=== PATIENT | female | born 1980 | race African-American/Black ===

== ENCOUNTER 2021-08-02 14:28 | Emergency (ER) | payer MEDICAID, SELFPAY ==
[2021-08-02 14:41] VITALS: BP 150/85; PULSE 99; RESP 16; TEMP 36.4; O2SAT 100
--- NOTE | 2021-08-02 14:58 | ED.GENADUL_ITS ---
Discharge Plan Disposition Patient Disposition: HOME Condition: Stable Discharge Details Clinical Impression: Otitis media Primary Care Provider: Unknown,Unknown ED Provider: Royer Bernard Home Meds and New Rx's Prescriptions: New amoxicillin 875 mg tablet 875 mg PO BID Qty: 20 0RF Discharge Instructions Instructions: Ear Infection (ED) Additional Instructions: Amoxicillin as directed. [id number] Tylenol and/or Motrin as well as antihistamine and decongestant as directed. Please watch for new or worsening symptoms and return to the ER for any concerns. Medical Decision Making 40-year-old female, denies significant past medical history, current smoker, presents with right ear pain for the past 2-3 days. Tried czsi-lds-jbrzsfa drops without relief. She reports decreased hearing and worse pain with chewing. Examination consistent with otitis media, no evidence of TMJ. Will treat with antibiotics and okro-zlg-vvkqoay medication for symptomatic control. Patient comfortable with this plan and has no additional questions or concerns Standard discharge and return precautions were provided. This documentation was generated using [employer] system, please disregard any oddities of phrase or misspellings. HPI General Mode of arrival: ambulatory . Date/Time Provider Initiated Documentation: 08/02/21 14:45 . Limitations to Documentation: no limitations . Information obtained by: patient . History of Present Illness 40 year old F presents to the emergency department with the chief complaint of R ear pain, described as moderate, with intensity rated at 6. Quality is described as aching, and is localized to the head (R ear). Patient reports no radiation. Patient started experiencing this day(s) (2-3) and it has been constant. improves with No relieving factors improve symptom(s), No exacerbating factors reported . Patient notes no other symptoms.. Patient did receive the following treatments prior to arrival, other (OTC drops) Related Data Home Medications Medication Instructions Recorded Confirmed amoxicillin 875 mg tablet 875 mg PO BID #20 tab 08/02/21 Previous Rx's Medication Instructions Recorded amoxicillin 875 mg tablet 875 mg PO BID #20 tab 08/02/21 Allergies Allergy/AdvReac Type Severity Reaction Status Date / Time No Known Allergies Allergy Unverified 08/02/21 14:47 General Stated Complaint: EarProblem SNEHA: 4 Review of Systems Constitutional Constitutional: Denies fever(s) ENT Ears, Nose, Mouth, and Throat: Denies ear discharge and Denies sore throat Cardiovascular Cardiovascular: Denies chest pain and Denies dyspnea Respiratory Respiratory: Denies cough and Denies dyspnea PFSH All Active Problems (Updated 08/02/21 @ 15:03 by RONNY Multani) Otitis media (Acute) Social History Smoking/Tobacco Use Status: Current every day Tobacco Type: cigarettes Smoking risk assessment performed?: Yes Alcohol Intake: current Alcohol Intake frequency: a few times a month Drug use: Socially Substance use type: marijuana Do you feel safe at home: Yes Do you feel safe in your relationship?: Yes Exam Const General: cooperative, healthy appearing, comfortable and no acute distress Orientation: alert and awake HENGA Head: normal to inspection, normocephalic and atraumatic Ears: TM normal on the left, EAC's normal and TM abnormal bulging on the right and erythematous on the right General nose exam: external nose normal Face and sinus: normal facial exam Mouth: moist mucous membranes Throat: posterior oropharynx normal Eyes General: appearance normal, both eyes and all related structures Conjunctivae: conjunctivae normal Neck Neck: normal visual inspection, full ROM, no lymphadenopathy, no meningeal signs, trachea midline, supple and nontender Resp Effort & Inspection: normal respiratory effort and able to speak in complete sen tences Auscultation: clear to auscultation bilaterally Cardio Rate: regular rate Rhythm: regular rhythm Skin General skin exam: no rashes or lesions noted Neuro General: patient alert, patient awake, moves all extremities and no focal motor deficits Sensory Exam: no sensory deficits noted Psych Appearance: grossly normal Mental Status: mental status grossly normal Course Vital Signs Vital signs: Vital Signs Temperature 36.4 C L 08/02/21 14:41 Pulse 99 H 08/02/21 14:41 Respiratory Rate 16 08/02/21 14:41 Blood Pressure 150/85 H 08/02/21 14:41 Pulse Oximetry 100 08/02/21 14:41 Temperature 36.4 C L 08/02/21 14:41 Temperature Source Skin 08/02/21 14:41 Pulse 99 H 08/02/21 14:41 Respiratory Rate 16 08/02/21 14:41 Respiratory Effort 08/02/21 14:44 Blood Pressure 150/85 H 08/02/21 14:41 Blood Pressure Position Supine 03/20/22 14:41 Pulse Oximetry 100 08/02/21 14:41 Oxygen Delivery Method Room Air 08/02/21 14:41 Oxygen Flow Rate 0 08/02/21 14:41 Pain Level 7 08/02/21 14:45
== END 2021-08-02 15:07 | disposition home or self-care (01) ==
PROVIDERS: Emergency Provider Physician Assistant
DX: H66.91 Otitis media, unspecified, right ear (principal)
CPT/HCPCS: 99283